=== PATIENT | male | born 1955 | race African-American/Black ===

== ENCOUNTER 2020-01-29 15:13 | Emergency (ER) | payer MEDICARE, BC ==
[2020-01-29] MEDS ORDERED: Tetan/Diph/Pertus SYR(Tdap)* 0.5 ML SYR(BOOSTRIX) use SYR contains LATEX IM ONE (15:19)
--- NOTE | 2020-01-29 15:19 | UC ---
Skin Complaint HPI - HPI Summary HPI Summary: 64 yo male presents with puncture wound. He tells me that today he was wearing his sneakers and was outside doing lawn work. He came inside and took his shoes off and realized he stepped on a nail that punctured his right foot. He did not feel this due to his diabetic neuropathy. He removed the nail in one piece. Came to for eval. Unsure date of last tetanus shot. - History of Current Complaint Time Seen by Provider: 01/29/20 15:19 Stated Complaint: PUNCTURE WOUND TO FOOT Hx Obtained From: Patient Current Severity: None - Allergy/Home Medications Allergies/Adverse Reactions: Allergies Allergy/AdvReac Type Severity Reaction Status Date / Time No Known Allergies Allergy Verified 01/29/20 15:19 Home Medications: Home Medications Insulin Glargine,Hum.rec.anlog [Lantus] 1 dose SUBCUT DAILY 07/23/15 [History Confirmed 01/29/20] Lisinopril [Zestril 10 MG-] 10 mg PO DAILY 07/23/15 [History Confirmed 01/29/20] Metformin HCl [Fortamet] 1,000 mg PO DAILY 07/23/15 [History Confirmed 01/29/20] Cholecalciferol TAB* [Vitamin D TAB*] 2 tab PO DAILY 09/08/16 [History Confirmed 01/29/20] Aspirin [Eql Aspirin] 325 mg PO DAILY 12/11/16 [History Confirmed 01/29/20] Canagliflozin (NF) [Invokana (NF)] 150 mg PO DAILY 12/11/16 [History Confirmed 12/11/16] Pregabalin 50 mg CAP (*) [Lyrica CAP(*)] 50 mg PO TID 12/11/16 [History Confirmed 01/29/20] Rosuvastatin (NF) [Crestor] 10 mg PO DAILY 12/11/16 [History Confirmed 01/29/20] Levofloxacin TAB* [Levaquin TAB*] 750 mg PO DAILY #5 tab 01/29/20 [Rx] PMH/Surg Hx/FS Hx/Imm Hx Endocrine History: Diabetes, Dyslipidemia Cardiovascular History: Hypertension - Surgical History Surgical History: None - Family History Known Family History: Positive: Hypertension Negative: Diabetes - Social History Lives: With Family Alcohol Use: None Substance Use Type: None Smoking Status (MU): Former Smoker - Immunization History Most Recent Influenza Vaccination: 2016 Review of Systems All Other Systems Reviewed And Are Negative: No Constitutional: Positive: Negative Skin: Positive: Other - Puncture wound Respiratory: Positive: Negative Cardiovascular: Positive: Negative Neurological/Mental Status: Positive: Negative Psychological: Positive: Negative Physical Exam - Summary Physical Exam Summary: GENERAL: NAD. WDWN. No pain distress. SKIN: RIGHT FOOT: Plantar aspect just inferior to 4th toe - superficial abrasion /skin tear. Along plantar 4th MTP there is a 7mm partial thickness laceration 1mm depth <1mm width. NTTP. No drainage. Clean appearing. CHEST: No accessory muscle use. Breathing comfortably and in no distress. CV: Pulses intact. Cap refill <2seconds MSK: FROM all toes right foot. NEURO: Alert. PSYCH: Age appropriate behavior. Triage Information Reviewed: Yes Vital Signs: Vital Signs: Temp Pulse Resp BP Pulse Ox 99.2 F 118 16 137/80 100 01/29/20 15:47 01/29/20 15:22 01/29/20 15:22 01/29/20 15:22 01/29/20 15:22 Vital Signs Reviewed: Yes Course/Dx - Course Course Of Treatment: Right foot puncture wound. Area cleansed with saline and telfa dressing applied. tdap updated today. Given puncture wound through sole of shoe and diabetes - will place him on pseudo coverage with levaquin for 5 days. Advised to change dressing daily and monitor area and be rechecked for any changes or worsening/new symptoms. - Diagnoses Provider Diagnosis: Puncture wound of right foot Discharge ED - Sign-Out/Discharge Documenting (check all that apply): Patient Departure All imaging exams completed and their final reports reviewed: No Studies - Discharge Plan Condition: Stable Disposition: HOME Prescriptions: Levofloxacin TAB* [Levaquin TAB*] 750 mg PO DAILY #5 tab Patient Education Materials: Puncture Wound (ED) Referrals: Enmanuel Armas MD [Primary Care Provider] - Additional Instructions: If you develop a fever, shortness of breath, chest pain, new or worsening symptoms - please call your PCP or go to the ED immediately. Change the dressing daily until well healed. If your notice pain, redness, drainage, swelling, or fever - please be rechecked immediately. - Billing Disposition and Condition Condition: STABLE Disposition: Home
--- OUTSIDE RECORDS SUMMARY | 2020-01-29 15:22 | XMS REPORT | Summary of Care ---
:1955 Author Organization [facility] Address [address] [place] [address] Care Team Providers Name Role Phone Enmanuel Armas MD Primary Care Provider Reason for Visit Reason Comments Follow-up Encounter Details Date Type Department Care Team Description 12/05/2019 Office Visit [facility] Graciela Arana P[facility] ([facility] vascular disease) Department of Surgery, [address] [place] [address] (Primary Dx) Division of Vascular Room [facility] [place], [place] Endovascular Services [phone] [facility] [phone] [place] [address] (Fax) [phone] Allergies No Known Allergiesdocumented as of this encounter (statuses as of 12/05/2019) Medications Medication Sig Dispensed Refills Start Date End Date Status insulin glargine Inject into the 0 Active (LANTUS SOLOSTAR) 100 skin nightly. UNIT/ML SOPN pen aspirin 81 MG tablet Take 81 mg by 0 Active mouth daily. tadalafil (CIALIS) 20 Take 20 mg by 0 Active MG tablet mouth as needed for Erectile Dysfunction. lisinopril Take 10 mg by 0 Active (PRINIVIL,ZESTRIL) 10 mouth daily. MG tablet Cholecalciferol Take 2 tablets by 0 Active (VITAMIN D3) 1000 mouth daily. UNITS CAPS pregabalin (LYRICA) Take 50 mg by 0 Active 50 MG capsule mouth Three times daily lovastatin (MEVACOR) Take 20 mg by 0 Active 20 MG tablet mouth nightly sitagliptin (JANUVIA) Take 1 tablet by 90 tablet 3 02/09/2017 Active 50 MG tablet mouth daily metformin TAKE ONE TABLET 180 tablet 0 02/11/2018 Active (GLUCOPHAGE) 1000 MG BY MOUTH TWICE A tabletIndications: DAY WITH MEALS Type 2 diabetes mellitus with hypoglycemia and coma, with long-term current use of insulin Mather 250 MCG Urethral INSERT ONE 0 01/06/2019 Active Pellet SUPPOSITORY INTO THE URETHRA TWICE A DAY NEEDED FOR ERECTILE DYSFUNCTION amLODIPine Besylate 0 11/24/2019 Active 10 MG Oral Tablet (NORVASC) Furosemide 20 MG Oral 0 10/22/2019 Active Tablet (LASIX) Nitroglycerin 0.4 MG 0 09/08/2019 Active Sublingual Tablet Sublingual (NITROSTAT) Rosuvastatin Calcium 0 11/10/2019 Active 10 MG Oral Tablet (CRESTOR) Cilostazol 100 MG Take 1 tablet by 60 tablet 11 12/05/2019 12/03/2020 Active Oral Tablet mouth Two Times Daily documented as of this encounter (statuses as of 12/05/2019) Active Problems Problem Noted Date Uncontrolled type 2 diabetes mellitus with hyperglycemia, with long-term 02/09 current use of insulin Essential hypertension 02/09/2017 Mixed hyperlipidemia 02/09/2017 Vitamin D deficiency 02/09/2017 documented as of this encounter (statuses as of 12/05/2019) Social History Tobacco Use Types Packs/Day Years Used Date Former Smoker Comments: quit in 1999 Sex Assigned at Date Recorded Not on file Job Start Date Occupation Industry Not on file Not on file Not on file Travel History Travel Start Travel End No recent travel history available. documented as of this encounter Last Filed Vital Signs Vital Sign Reading Time Taken Comments Blood Pressure 151/86 12/05/2019 9:06 AM EST Pulse 92 12/05/2019 9:06 AM EST Temperature 36.8 12/05/2019 9:06 AM EST C (98.3 F) Respiratory Rate 20 12/05/2019 9:06 AM EST Oxygen Saturation 98% 12/05/2019 9:06 AM EST Inhaled Oxygen Concentration - - Weight 111.6 kg (246 lb) 12/05/2019 9:06 AM EST Height 182.9 cm (6') 12/05/2019 9:06 AM EST Body Mass Index 33.36 12/05/2019 9:06 AM EST documented in this encounter Progress Notes Graciela Arana MD - 12/05/2019 9:00 AM EST Subjective: Patient ID: Moshe Bettencourt is a 64 y.o. male with past medical history of Diabetes mellitus, ED (erectile dysfunction), HLD (hyperlipidemia), and Hypertension who is her for follow up today. 10/04/[address] Weems: " following for some lower extremity discomfort. He has evidence of peripheral neuropathy. He is currently on Lyrica. There was some question of peripheral vascular disease and was initially evaluated with ABIs and PVRs. He is here today for followup. At the previous office visit, he had evidence of ABIs on the right to be approximately 1.1 and on the left to be 0.96. He would state that there were periods where his legs would cramp or feel heavy, althoughhe attributed it to possible dehydration. " He had new TREMAINE and is here to discuss those results. Since he was last seen, his sxs have been stable. No new complaints. His glucoses have been up anddown. Last time he checked it was 167. He has had some trouble getting his needles and alcohol andmeter. Former smoker quitting 18 years ago. He can't walk far. He was having some problems walking [address] Mota saw him and His note from Dr. Armas (09/08/19) was reviewed. He is referring him to Dr. Lopez for poorly controlled DM. He had some retinal issues and saw Ophthalmology. He continues to have peripheral neuropathy and in on Lyrica. He has BPH so is seeing Urology as well. He had a stress test because of chest pain with Dr. Mota. He said that he had increased his statin dose. His TREMAINE decreased so he is here today. He feels that he can walk but has to stop after a bit. He can walk 100 yrds. It is not lifestyle limiting but worse when carrying things that are heavy. Otherdays he can walk as far as he needs to. Both legs bother him. The balls of his feet are tight. Massaging them helps. His feet swell also. He is taking Furosamide and that improved it. Chief Complaint: JERAD Mesa has a past medical history of Diabetes mellitus, ED (erectile dysfunction), HLD (hyperlipidemia), and Hypertension. Moshe has Uncontrolled type 2 diabetes mellitus with hyperglycemia, with long- term current use of insulin; Essential hypertension; Mixed hyperlipidemia; and Vitamin D deficiency on their problem list. Moshe has no past surgical history on file. His family history is not on file. Moshe reports that he has quit smoking. He does not have any smokeless tobacco history on file. Nohistory on file for alcohol and drug. Moshe has a current medication list which includes the following prescription(s ): amlodipine, aspirin, vitamin d3, furosemide, insulin glargine, lisinopril, lovastatin, metformin, muse, nitroglycerin,pregabalin, rosuvastatin, tadalafil, and sitagliptin. Current Outpatient Medications on File Prior to Visit Medication Sig Dispense Refill amLODIPine Besylate 10 MG Oral Tablet (NORVASC) aspirin 81 MG tablet Take 81 mg by mouth daily. Cholecalciferol (VITAMIN D3) 1000 UNITS CAPS Take 2 tablets by mouth daily. Furosemide 20 MG Oral Tablet (LASIX) insulin glargine (LANTUS SOLOSTAR) 100 UNIT/ML SOPN pen Inject into the skin nightly. lisinopril (PRINIVIL,ZESTRIL) 10 MG tablet Take 10 mg by mouth daily. lovastatin (MEVACOR) 20 MG tablet Take 20 mg by mouth nightly metformin (GLUCOPHAGE) 1000 MG tablet TAKE ONE TABLET BY MOUTH TWICE A DAY WITH MEALS 180 tablet 0 Mather 250 MCG Urethral Pellet INSERT ONE SUPPOSITORY INTO THE URETHRA TWICE A DAY NEEDED FOR ERECTILE DYSFUNCTION Nitroglycerin 0.4 MG Sublingual Tablet Sublingual (NITROSTAT) pregabalin (LYRICA) 50 MG capsule Take 50 mg by mouth Three times daily Rosuvastatin Calcium 10 MG Oral Tablet (CRESTOR) tadalafil (CIALIS) 20 MG tablet Take 20 mg by mouth as needed for Erectile Dysfunction. sitagliptin (JANUVIA) 50 MG tablet Take 1 tablet by mouth daily 90 tablet 3 No current facility-administered medications on file prior to visit. Moshe has No Known Allergies. Review of Systems All other systems reviewed and are negative. Objective: Physical Exam Constitutional: He is oriented to person, place, and time. He appears well- developed and well-nourished. HENT: Head: Normocephalic. Eyes: Pupils are equal, round, and reactive to light. Neck: Normal range of motion. Cardiovascular: Normal rate. Femoral 2+ Right popliteal 2+; popliteal not palpable. Left peroneal monophasic, AT, PT biphasic Right peroneal biphasic; monophasic DP, PT Pulmonary/Chest: Effort normal. Abdominal: Soft. Musculoskeletal: Normal range of motion. Neurological: He is alert and oriented to person, place, and time. Skin: Skin is warm and dry. Psychiatric: He has a normal mood and affect. His behavior is normal. Judgment and thought content normal. Nursing note and vitals reviewed. Lab Review: 11/26/09 TREMAINE: Right PT 0.89; DP 0.77 Left PT 0.56; DP 0.62 Reduced since Sep 2018: Right 0.98 and Left 0.9 Assessment: 1. PVD (peripheral vascular disease) Plan: He needs optimization of his cardiovascular risk factors. He is somewhat bothered by the limitation of his walking and would like to try Pletal. He has been sleeping in a recliner and this is not good. I asked him to sleep in his bad. That is contributing to his LE edema. His PAD has progressed. He has neuropathy and should see a [employer] regularly to monitor for deformity. I will put in a prescirption for Pletal 100 mg Po BID. If he gets LENNON or diarrhea he can cut the pill in half. I'll repeat his TREMAINE with TBI in 6 months and I'll see him back then. documented in this encounter Plan of Treatment Health Maintenance Due Date Last Done Comments Hepatitis C Screening (B. 1955 [id number]) MMR Vaccines (1 of 1 - 1956 Standard series) Varicella Vaccines (1 of 2 - 1956 2-dose childhood series) DTaP,Tdap,and Td Vaccines (1 1961 - Tdap) Diabetic Foot Exam 1972 Dilated Retinal Exam 1972 Hepatitis B Vaccines (1 of 3 1973 - Risk 3-dose series) Colon Cancer Screening 10 yrs 2004 Zoster Vaccines (1 of 2) 2004 Hemoglobin A1c 08/11/2017 02/09/2017, 02/09/2017 Lipid Disorder Screening 02/09/2018 02/09/2017 Urine Microalbumin 02/09/2018 02/09/2017 Influenza Vaccine 08/05/2019 Pneumococcal Vaccine: 65+ 2019 Years (1 of 2 - PCV13) HIB Vaccines Aged Out No longer eligible based on patient's age to complete this topic Hepatitis A Vaccines Aged Out No longer eligible based on patient's age to complete this topic IPV Vaccines Aged Out No longer eligible based on patient's age to complete this topic Pneumococcal Vaccine: Aged Out No longer eligible based Pediatrics (0 to 5 Years) and on patient's age to At-Risk Patients (6 to 64 complete this topic Years) documented as of this encounter Results Not on filedocumented in this encounter Visit Diagnoses Diagnosis PVD (peripheral vascular disease) - Primary Peripheral vascular disease, unspecified documented in this encounter
[2020-01-29 15:33] VITALS: BP 137/80
--- NOTE | 2020-01-31 12:22 | UC ---
- Progress Note Progress Note: pharmacist called to discuss patients rx from Dr. Yu for Cipro after he had an untoward reaction with Levoflox. will rx augment 875 mg po bid for 10 days- --I called patient with specific instructions to observe foot several times a day and if symptoms worsen or fail in improve to go to the ED for care as he may need IV antibiotics--- Patient verbalizes understanding and will follow up as planned-- Course/Dx - Diagnoses Provider Diagnoses: Puncture wound of right foot Discharge ED - Sign-Out/Discharge Documenting (check all that apply): Post-Discharge Follow Up All imaging exams completed and their final reports reviewed: No Studies - Discharge Plan Condition: Stable Disposition: HOME Prescriptions: Levofloxacin TAB* [Levaquin TAB*] 750 mg PO DAILY #5 tab Patient Education Materials: Puncture Wound (ED) Referrals: Enmanuel Armas MD [Primary Care Provider] - Additional Instructions: If you develop a fever, shortness of breath, chest pain, new or worsening symptoms - please call your PCP or go to the ED immediately. Change the dressing daily until well healed. If your notice pain, redness, drainage, swelling, or fever - please be rechecked immediately. - Billing Disposition and Condition Condition: STABLE Disposition: Home
== END 2020-01-29 16:09 | disposition home or self-care (01) ==
LOC: UCEAST 15:13
DX: S91.331A Puncture wound without foreign body, right foot, initial encounter (principal); W45.0XXA Nail entering through skin, initial encounter; Y93.H9 Activity, other involving exterior property and land maintenance, building and construction; Y92.007 Garden or yard of unspecified non-institutional (private) residence as the place of occurrence of the external cause; Z23 Encounter for immunization; E11.9 Type 2 diabetes mellitus without complications; Z79.84 Long term (current) use of oral hypoglycemic drugs; I10 Essential (primary) hypertension; Z79.899 Other long term (current) drug therapy; Z87.891 Personal history of nicotine dependence
CPT/HCPCS: 90715; 99212; G0463